=== PATIENT | female | born 1995 | race Two or more races ===

== ENCOUNTER 2017-08-03 21:13 | Emergency (ER) | payer OTHER ==
[~2017-08-03] VITALS: Ht 162.6 cm; Wt 88.9 kg
[2017-08-03 21:17] VITALS: BP 155/92
[2017-08-03] MEDS ORDERED: HYDROcodone/APAP 5/325 TABLET ONE (23:27)
[2017-08-03] MEDS ORDERED: LIDOCAINE 1%, 20ML ONE (23:28)
[2017-08-03] MEDS ORDERED: HYDROcodone/APAP 5/325 TABLET PO ONE (23:30)
[2017-08-03] MEDS ORDERED: LIDOCAINE 1%, 20ML SQ ONE (23:30)
== END 2017-08-04 00:04 | disposition home or self-care (01) ==
LOC: ED 23:57
DX: L05.91 Pilonidal cyst without abscess (principal)
CPT/HCPCS: 46050; 99284

== ENCOUNTER 2017-08-05 18:27 | Emergency (ER) | payer OTHER ==
[~2017-08-05] VITALS: Ht 162.6 cm; Wt 89.1 kg
[2017-08-05 18:44] VITALS: BP 134/83
[2017-08-05] MEDS ORDERED: BACITRACIN ZINC OINT 500U/GM, 0.9 GM ONE (19:17)
== END 2017-08-05 19:25 | disposition home or self-care (01) ==
LOC: ED 19:20
DX: L05.01 Pilonidal cyst with abscess (principal)
CPT/HCPCS: 99283